=== PATIENT | female | born 1945 | race Caucasian/White ===

== ENCOUNTER → 2016-12-29 | Outpatient (CLI) | payer OTHER | LOC: FIMAGING 15:40 | DX: Z12.31 Encounter for screening mammogram for malignant neoplasm of breast (principal); Z80.3 Family history of malignant neoplasm of breast | CPT/HCPCS: G0202 ==

== ENCOUNTER → 2018-03-22 | Outpatient (CLI) | payer OTHER | LOC: FIMAGING 08:29 | PROVIDERS: ATTEND Nurse Practitioner Family | DX: Z12.31 Encounter for screening mammogram for malignant neoplasm of breast (principal); Z80.3 Family history of malignant neoplasm of breast ==

== ENCOUNTER 2018-08-25 11:37 | Inpatient (IN) | payer OTHER ==
--- NOTE | 2018-08-25 13:15 | EDPHY ---
H & P Time Seen by Provider: 08/25/18 12:52 HPI/ROS: HPI Shortness of breath and cough. 73-year-old female by private vehicle with her daughter. This patient reports that she has had worsening shortness of breath and cough since last Tuesday. She was diagnosed with pneumonia by her primary care physician Dr. Rose. She is seen her primary care physician twice over this time span. She states that her chest x-ray reportedly looked a little worse today but we do not have any access to this study. She is on day number four of azithromycin. She reports that she was feeling better yesterday but then started declining again today with worsening cough and shortness of breath. ROS: Constitutional: No fever, no chills. No weakness. Eyes: No discharge. No changes in vision. ENT: No sore throat. No nasal congestion or rhinorrhea. Respiratory: As above. Cardiac: No chest pain, no palpitations. Gastrointestinal: No abdominal pain, no vomiting, no diarrhea. Genitourinary: No hematuria. No dysuria or increased frequency with urination. Musculoskeletal: No back pain. No neck pain. No myalgias or arthralgias. Skin: No rashes. Neurological: No headache. No focal weakness or altered sensation. Past medical history: She does not have any significant past medical history other than noted. Social history: Nonsmoker. She is here with her daughter. No alcohol. Physical Exam: General Appearance: Alert, no distress. This patient is responding to questions appropriately and in full sentences. This patient appears well- hydrated and well-nourished. Intermittent dry cough. Eyes: Pupils equal and round no pallor or injection. No lid edema, erythema or injection. ENT, Mouth: Mucous membranes are moist. The pharyngeal tissues are unremarkable. No edema or swelling. No asymmetry suggestive of abscess. No erythema or exudates. No stridor on auscultation of her neck. No voice changes. No cervical, submandibular, submental lymphadenopathy. Respiratory: There are no retractions, lungs are clear to auscultation with good air movement bilaterally. Faint crackles noted at the bilateral bases, greater on the right side. No tachypnea. Cardiovascular: Regular rate and rhythm. No murmur. Gastrointestinal: Abdomen is soft and nontender, no masses, bowel sounds normal. No focal tenderness at McBurney's point. No Barth sign. Neurological: Motor sensory function is grossly intact. Cranial nerves are normal. Gait is normal. Skin: Warm and dry, no rashes. Musculoskeletal: Neck is supple and nontender. Extremities are symmetrical. No significant lower extremity edema. All joints range without pain or impingement. Psychiatric: No agitation. No depression. Database: EKG: EKG time is 1:31 p.m.; EKG shows a narrow complex normal sinus rhythm with a ventricular rate of 72. The MS, QRS, QT intervals are within normal limits. There are no ST-T wave changes indicative of ischemic or injury pattern. No evidence of right heart strain. Interpreted by me. Imaging: Chest x-ray PA and lateral: The cardiac mediastinal silhouette is unremarkable. No evidence of pneumothorax. Significant for patchy infiltrative process bilaterally involving the right lower lobe and middle lobe and left lower lobe and lingula. Interpreted by me. Procedures: Emergency department course: Triage vital signs reviewed. She is mildly hypertensive. Triage vital signs are otherwise normal. She is afebrile. Room air pulse oximetry is 90%. IV placed. A chest x-ray will be obtained. Cardiac workup to follow. 2:05 p.m., chest x-ray interpreted by myself. Significant for bilateral pneumonia. Blood cultures will be obtained. The patient will be started on IV Levaquin shortly. Plan for admission. She has been on azithromycin and getting worse. 2:50 p.m., patient re-evaluated, she is sitting upright on the gurney. Blood cultures have been taken. She will start her levofloxacin shortly. She remains afebrile. Results of chest x-ray, diagnosis of pneumonia discussed with her and her daughter. Need for admission discussed. All of their questions were answered. Patient endorses plan. 2:55 p.m., spoke with hospitalist. Case discussed in detail. Patient admitted to the hospitalist service in stable condition. Differential Diagnosis: The differential diagnosis on this patient includes but is not limited to pneumonia, bronchitis, congestive heart failure, pulmonary embolism, acute coronary syndrome. This represents a partial list of diagnoses considered. These considerations are based on history, physical exam, past history, reassessment and diagnostic testing. Smoking Status: Never smoked Constitutional: Initial Vital Signs Temperature (C) 36.4 C 08/25/18 11:39 Heart Rate 85 08/25/18 11:39 Respiratory Rate 08/25/18 11:39 Blood Pressure 140/75 H 08/25/18 11:39 O2 Sat (%) 98 08/25/18 11:39 O2 Delivery Mode Room Air O2 (L/minute) 2 Allergies/Adverse Reactions: No Known Allergies Allergy (Verified 08/25/18 14:20) Home Medications: Medication Instructions Recorded Azithromycin 250 mg PO DAILY 08/25/18 Losartan Potassium [Cozaar 50 mg 50 mg PO BID 08/25/18 (*)] Medical Decision Making - Data Points Laboratory Results: Laboratory Results 08/25/18 13:25 08/25/18 13:25 Medications Given: Enoxaparin Sodium (Lovenox) 40 mg SC DAILY [facility] Stop: 02/22/19 08:59 Last Admin: 08/26/18 08:23 Dose: 40 mg Levofloxacin/Dextrose (Levaquin 750 Mg (Premix)) 150 mls @ 100 mls/hr IV DAILY [facility] PRN Reason: Protocol Stop: 09/25/18 08:59 Last Admin: 08/26/18 08:23 Dose: 150 mls Discontinued Medications Albuterol/Ipratropium (Duoneb) 3 ml IH QID [facility] Stop: 02/21/19 15:59 Last Admin: 08/25/18 22:29 Dose: Not Given Levofloxacin/Dextrose (Levaquin 750 Mg (Premix)) 150 mls @ 100 mls/hr IV EDNOW ONE PRN Reason: Protocol Stop: 08/25/18 15:32 Last Admin: 08/25/18 15:18 Dose: 150 mls Point of Care Test Results: Chemistry 08/25/18 13:29 POC Troponin I 0.01 ng/mL ng/mL (0.00-0.08) Departure - Departure Disposition: [facility] Acute Clinical Impression: Cough, Dyspnea, Pneumonia Condition: Fair
[2018-08-25 13:42] LABS: PLATELET COUNT 552 10^3/uL (150-400)
[2018-08-25 13:47] LABS: INR 1.19 (0.83-1.16); PROTIME(PATIENT) 15.3 SEC (12.0-15.0)
[2018-08-25] MEDS ORDERED: PROMETHAZINE HCL 25 MG/ML INJ IVP PRN (15:38)
[2018-08-25] MEDS ORDERED: ACETAMINOPHEN 325 MG TAB PO PRN (15:38)
[2018-08-25] MEDS ORDERED: IPRATROPIUM/ALBUTEROL 3 ML DEYVIAL IH PRN (21:30)
[2018-08-25] MEDS: IPRATROPIUM/ALBUTEROL 3 ML DEYVIAL IH SCH ×2 (22:10→22:29)
--- NOTE | 2018-08-26 01:21 | GHP ---
DATE OF ADMISSION: 08/25/2018 CHIEF COMPLAINT: Cough and subjective shortness of breath. HISTORY OF PRESENT ILLNESS: The patient is a pleasant 73-year-old female with a past medical history of Mycobacterium avium intracellulare infection in approximately 2009 (followed at [facility]) who presented to [facility] with worsening cough and subjective shortness of breath. She had been seen in the outpatient setting and started on azithromycin, which she took for approximately 4 days. Despite this, however, her symptoms worsened and she came to the emergency ro om at [facility]. Initial chest x-ray showed bilateral infiltrates along with possib le bronchiectasis and reticular nodular infiltrates. This was felt to represent acute on top of ctc operator sabas interstitial lung disease. She was started on Levaquin. Surprisingly, she was not hypoxic, satt ing 97% on room air. A CT scan of the chest was ordered for further assessment and I talked with the radiologist on the reading. This showed worsening of lingular and right middle lobe tree and bud no dular opacities and bronchiectasis, compatible with MAC, and also showed development of diffuse predo minantly ground-glass opacities, compatible with MAC-related airspace disease or other concurrent aty pical infectious pneumonia. The patient states that she has only had worsening symptoms over the pas t 7 to 10 days. Prior to that, she had been without any upper respiratory symptoms. She states she was followed at [facility] around 2009 and 2010. She did bring a notebook with her that she kep t during this time and it does appear she was on triple antibiotic therapy for some time for Mycobact erium avium. She has not had any followup with Pulmonary Medicine since that time frame. I did revi ew the case with Dr. Ramirez with pulmonary and critical care medicine, who will provide formal consult ation. PAST MEDICAL HISTORY: Hypertension, history of ELIAZAR. PAST SURGICAL HISTORY: None. MEDICATIONS: Losartan. ALLERGIES: No known drug allergies. FAMILY HISTORY: Mother from complications from congestive heart failure, Dad from complications from a myocardial infarction. SOCIAL HISTORY: Patient is . She is a nonsmoker. She has 2 children. She is an active weav er and teaches locally. REVIEW OF SYSTEMS: CONSTITUTIONAL: No complaints of any subjective fevers or chills. ENT: No rece nt nasal congestion. CARDIOVASCULAR: No complaints of chest pains, palpitations, or syncopal events . RESPIRATORY: Positive for subjective shortness of breath and productive cough. No hemoptysis. G I: No nausea, vomiting, diarrhea, or constipation. : No reports of any difficulty with urination . NEUROLOGIC: No complaints of headaches or focal weakness. HEMATOLOGIC: No history of any deep v ein thrombosis or pulmonary embolism. PSYCHIATRIC: No history of anxiety or depression. ENDOCRINE: No polyuria or heat intolerance. SKIN: No new skin rashes. MUSCULOSKELETAL: No focal joint pain s. PHYSICAL EXAMINATION: VITAL SIGNS: Temperature 36.7, blood pressure 99/78, heart rate 98, respirati ons 24, satting 97% on room air. GENERAL: Patient appeared mildly distressed secondary to increased work of breathing, conversant but did get short of breath when talking. However, she remained above 90% during my conversation with her. Nontoxic appearing. HEENT: Extraocular movements intact. No scleral icterus. NECK: Supple. No adenopathy appreciated. CHEST: Clear on auscultation with nor mal respiratory effort. HEART: Regular rate and rhythm. No murmurs. ABDOMEN: Soft, nontender, no ndistended. : No Koo catheter in place. EXTREMITIES: No significant pitting edema. NEUROLOGI C: Cranial nerves 2-12 appeared intact with 5/5 strength in the extremities. LABORATORY DATA: White blood cell count 11 with 4% bandemia, hemoglobin 13, platelets 552. Sodium 1 38, potassium 4.2, chloride 103, bicarb 24, BUN 11, creatinine 0.6, glucose 107. Troponin 0.01. BNP 398. IMAGING: As detailed above. ASSESSMENT AND PLAN: Pneumonia, concerning for potential recurrence of Mycobacterium avium intracell ulare. This could also be community-acquired pneumonia on top of this history. I will continue with current Levaquin. Blood cultures have been taken. Urine legionella and pneumoniae antigens have be en ordered as well. Nebulizers as needed. There is no significant wheezing on exam. Leukocytosis. Trend with current antibiotic therapy. Sputum culture and AFB smears also ordered. Hypertension. I will hold her losartan overnight. Deep vein thrombosis prophylaxis. Lovenox. DISPOSITION: I will admit her under observation status overnight pending further recommendations. /[id number]/MODL
[2018-08-26 05:13] LABS: PLATELET COUNT 515 10^3/uL (150-400)
[2018-08-26] MEDS: ENOXAPARIN 40 MG/0.4 ML SYR SC SCH (08:23)
--- NOTE | 2018-08-26 09:23 | CPEKG ---
Test Reason : OPEN Blood Pressure : / mmHG Vent. Rate : 072 BPM Atrial Rate : 073 BPM P-R Int : 144 ms QRS Dur : 095 ms QT Int : 414 ms P-R-T Axes : 007 022 032 degrees QTc Int : 454 ms Sinus rhythm Borderline T abnormalities, anterior leads Confirmed by Kody Brownlee ([id number]) on 08/26/2018 9:23:20 AM Referred By: Confirmed By:Kody Brownlee
--- NOTE | 2018-08-26 11:09 | HOSPPROG ---
Hospitalist Progress Note Assessment/Plan: 73y female with c/o sob and cough. First encounter, chart reviewed. #PNA -on Levauin -cont supportive care -pulm consult today, D/W Pulm #Leukocytosis -mild, slight improvement #HTN -home meds -follow #Dispo -follow blood cultures -likely home in am if pulm agrees Subjective: Feeling much better today. Less coughing and SOB. Objective: Vital Signs Temp Pulse Resp BP Pulse Ox 36.5 C 88 16 129/89 H 96 08/26/18 08:00 08/26/18 08:00 08/26/18 08:00 08/26/18 08:00 08/26/18 08:00 Microbiology 08/25/18 17:37 - Final Sputum, Expectorated Laboratory Results 08/26/18 04:36 08/26/18 04:36 08/25/18 08/26/18 08/27/18 05:59 05:59 05:59 Intake Total 1030 Balance 1030 PT 15.3 SEC (12.0-15.0) H 08/25/18 13:25 INR 1.19 (0.83-1.16) H 08/25/18 13:25 - Physical Exam Constitutional: no apparent distress, appears nourished, not in pain Eyes: PERRL, anicteric sclera, EOMI Ears, Nose, Mouth, Throat: moist mucous membranes, hearing normal, ears appear normal Cardiovascular: No JVD, No tachycardia, No edema Respiratory: no respiratory distress, no rales or rhonchi, reduced air movement Gastrointestinal: normoactive bowel sounds, No tenderness, No ascites Skin: warm, normal color, No mottled Musculoskeletal: normal joint ROM, no joint effusions, generalized weakness Neurologic: AAOx3 Psychiatric: interacting appropriately, not anxious, not encephalopathic, thought process linear ICD10 Worksheet Patient Problems: Problems Problem Status Onset Cough Acute Dyspnea Acute Pneumonia Acute
--- NOTE | 2018-08-26 13:11 | ASMTCMCOM ---
CM Note CM Note Notes: Pt has been admitted with possible PNA. Cultures are pending due to her hx of ELIAZAR. She has a hx of chronic interstitial lung disease and HTN. She is currently on IV ABX and nebulizer treatments. She lives alone in [place] and has a son and daughter nearby. A pulmonary consult has been requested. CM will follow for any d/c needs. Date Signed: 08/26/2018 01:10 PM Electronically Signed By:CORI Sultana
--- NOTE | 2018-08-26 19:07 | PDMN ---
Medical Necessity Medical necessity: [facility] M[address] [place], [place], A-2 days: 73 yo presents w/ cough and sob, dx w/ pneumonia, concerning for potential recurrence of mycobacterium avium intracellulare. Initially OBS but pt changed to IP status requiring further supportive care and pulm consult, cont on IV antibx, BC pending. Important to note pt was seen in the outpt setting for these s/sx and started on azithromycin x4 days but s/sx worsened. Hx HTN, ELIAZAR as above. Change to IP status 08/26/18 @1110
--- NOTE | 2018-08-26 20:46 | GCON ---
PULMONARY/CRITICAL CARE CONSULTATION DATE OF CONSULTATION: 08/26/2018 REFERRING PHYSICIAN: Bethel Barr MD REASON FOR REFERRAL: Evaluation and management of pneumonia. HISTORY: The patient is a 73-year-old woman, who was admitted to the hospital with cough and dyspnea . She has a history of Mycobacterium avium complex infection in approximately 2009, for which she wa s treated with 3 drugs for about a year. She reports that she has essentially had no pulmonary sympt oms since her treatment 8 years ago. She was in this usual state of good health until about 10 days ago, when she returned from a trip from [place], and shortly thereafter developed symptoms of a head cold with nasal congestion and coryza. This progressed over the next few days, to the point that she felt quite ill, with fatigue and poor appetite, as well as shortness of breath. She was seen by Dr. Alves, her PCP, who prescribed azithromycin about 5 days ago. She completed the course and did n ot feel well, so yesterday she saw him again, and because she was feeling so shortness of breath, fat igued, unable to work, he referred her for hospitalization. She was seen and started on Levaquin las t night. She feels quite a bit better today. Her appetite has improved and she has less shortness o f breath and her energy has improved. PAST MEDICAL HISTORY: 1. Hypertension. 2. History of Mycobacterium avium complex. MEDICATIONS: Losartan. ALLERGIES: None. SOCIAL HISTORY: The patient is . She does not smoke. FAMILY HISTORY: Unremarkable. REVIEW OF SYSTEMS: A 10-point review of systems adds nothing to the history of present illness. PHYSICAL EXAMINATION: GENERAL: The patient is awake and alert. She is in no acute distress. VITAL SIGNS: Blood pressure is 123/64 with a heart rate of 84, down from as high as 106 last night. She has been afebrile throughout hospitalization. HEENT: Normocephalic and atraumatic. No icterus. NE CK: No adenopathy. Trachea is midline. CHEST: Clear to auscultation. CARDIAC: Regular rate and rhythm without murmur. ABDOMEN: Soft and nontender. Bowel sounds are present. EXTREMITIES: No cl ubbing, cyanosis, or edema. NEURO: The patient is awake and alert. She has no focal motor deficits . LABORATORY: White blood count is 10.5, down from 11.7. She has 2% bands. Chemistry group is unrema rkable. Her BNP is 398. INR is 1.2. Sputum Gram stain shows several organisms, and a preliminary c ulture shows mixed paul. AFB smear is negative. Respiratory PCR is pending. Legionella and Strep pneumoniae antigens have been ordered, but not yet collected. DIAGNOSTIC DATA: A CT scan of the chest shows multiple patchy areas of bilateral ground-glass/inters titial infiltrates. These are new compared to 2012. In addition, there is some bronchiectasis that was present in 2012 in the right middle lobe and lingula, as well as some tree in bud changes, also p reviously present. Images reviewed by me. ASSESSMENT: 1. Bilateral pneumonia. The patient has patchy airspace disease, and I believe that is most consist ent with an acute infectious process, such as a viral or bacterial pneumonia. She has clinically res ponded quite quickly to Levaquin. I doubt that this represents active Mycobacterium avium complex gi asim the acute nature of the symptoms. It is hard to say how much of the CT findings are old versus n ew. 2. History of Mycobacterium avium complex. The patient has a history of this, but has been asymptom atic for the last 7 years. RECOMMENDATIONS: 1. Await results of respiratory panel and legionella/pneumonia antigens as previously ordered. 2. Continue Levaquin. 3. The patient could probably be discharged home tomorrow if she continues to do well. /[id number]/MODL
[2018-08-26] MEDS ORDERED: BENZONATATE 100 MG CAP PO PRN (21:18)
[2018-08-27 05:22] LABS: PLATELET COUNT 522 10^3/uL (150-400)
[2018-08-27 08:12] VITALS: BP 138/73
[2018-08-27] MEDS: ENOXAPARIN 40 MG/0.4 ML SYR SC SCH (08:33)
--- NOTE | 2018-08-27 14:16 | GDS ---
DISCHARGE DIAGNOSES: 1. Bilateral pneumonia. 2. History of Mycobacterium avium complex. CONSULTATIONS: Dr. Ramirez of pulmonology. STUDIES AND PROCEDURES DONE: CT of the chest. PHYSICAL EXAM: GENERAL: The patient is alert. VITAL SIGNS: Are afebrile at 36.8, pulse is a 90, re spiratory rate 16, blood pressure is 138/73. She is saturating 98% on room air. I have seen and radha luated the patient on the day of discharge. HOSPITAL COURSE: The patient is a 73-year-old female who presented to the emergency room with compla ints of shortness of breath. She was evaluated and diagnosed with: 1. Bilateral pneumonia. During this hospitalization, a CT of her chest was performed. She also rec eived a consultation from Dr. Ramirez of Pulmonology. She has been initiated on Levaquin and has respo nded very rapidly to this treatment. She will continue on Levaquin in the outpatient setting and fol low up with Dr. Ramirez to assure resolution of her pneumonia. 2. Leukocytosis. This is in the setting of acute infectious process and is stable. 3. Hypertension. Her home medications have been continued and the patient is tolerating this well. DISPOSITION: The patient will be discharged home independently. FOLLOWUP: Followup will be with her primary care physician, AUNDREA Cancino as well as Dr. Catracho Ramirez of Pulmonology. I have instructed the patient to follow up with her primary care office for the res ults of her urine Legionella and strep pneumoniae results. She is in agreement with this plan. DISCHARGE MEDICATIONS: Please refer to EMR form. I have provided the patient a prescription for Lev aquin 750 mg daily. PENDING STUDIES: Include urine Legionella as well as strep pneumoniae. I spent greater than 35 jhoan chelsea in the care, coordination, and management of the patient's disposition including followup instruc tions. /[id number]/MODL
--- NOTE | 2018-08-27 16:23 | ASMTLACE ---
LACE Length of stay for Answers: 1 day current admission Acuity / Level of Answers: Yes Care: Did the patient have an inpatient admission? Comorbidities - select Answers: Chronic pulmonary disease all that apply Other Notes: HTN # of Emergency department Answers: 1-2 visits in the last 6 months Score: 8 Date Signed: 08/27/2018 04:22 PM Electronically Signed By:Laure Smith RN
--- NOTE | 2018-08-27 16:35 | ASDISCHSUM ---
Discharge Information Plan Status:Home with No Needs Medically Cleared to Leave:08/26/2018 Discharge Date:08/27/2018 01:04 PM CM D/C Disposition:Home, Routine, Self-Care ADT D/C Disposition:Home, Routine, Self-Care Projected Discharge Date:08/27/2018 01:04 PM Transportation at D/C:Family Discharge Delay Reason: Follow-Up Date:08/27/2018 01:04 PM Discharge Slot:2 - 12:01 pm - 18:00 pm Final Diagnosis:Bilateral pneumonia, leukocytosis, HTN Placement Information Patient Contact Information Contact Name:KELVIN Relationship:Friend Address: City:[place] Alternate Phone: [facility] Code:[place] Email: Financial Information Financial Class:Medicare Primary Plan Desc:MEDICARE INPATIENT Primary Plan Number:[id number] Secondary Plan Desc:MEDICO Secondary Plan Number:[id number] Assessment Information LACE LACE Length of stay for Answers: 1 day current admission Acuity / Level of Answers: Yes Care: Did the patient have an inpatient admission? Comorbidities - select Answers: Chronic pulmonary disease all that apply Other Notes: HTN # of Emergency department Answers: 1-2 visits in the last 6 months Score: 8 Date Signed: 08/27/2018 04:22 PM Electronically Signed By:Laure Smith RN [facility] Progress Note CM Note CM Note Notes: Pt has been admitted with possible PNA. Cultures are pending due to her hx of ELIAZAR. She has a hx of chronic interstitial lung disease and HTN. She is currently on IV ABX and nebulizer treatments. She lives alone in [place] and has a son and daughter nearby. A pulmonary consult has been requested. CM will follow for any d/c needs. Date Signed: 08/26/2018 01:10 PM Electronically Signed By:CORI Sultana Case Management Discharge Plan Note Case Management Discharge Discharge Order Complete? Answers: Yes Patient to Obtain Answers: Independently Medications Transportation Arranged Answers: Family/Friends Transport will Pick (Date 08/27/2018 12:00 AM & Time) EMTALA Complete Answers: No Notes: N/A Case Management Transport Answers: No Notes: N/A Form Complete Faxed Final Orders Answers: No Notes: N/A Agency/Facility Transfer Answers: No Notes: N/A Report Printed & Faxed to Receiving Agency Family Notified Answers: Yes Notes: Pt notified Discharge Comments Notes: Reviewed chart regarding discharge plan of care, pt's progress. Per MD notes, pt to discharge home independently today with no identified needs. No IM/ONTIVEROS form signed, pt left prior to signing. Pt to follow up as directed. CM available for any further issues or concerns. Discharge Plan: Home independently Date Signed: 08/27/2018 04:33 PM Electronically Signed By:Laure Smith RN Intervention Information Intervention Type:*Incorrect Registration Date of Service:08/26/2018 11:06 AM Patient Type:Inpatient Staff Member:Sherley Mistry Hours: Discipline: Severity: Comment: Intervention Type:IM-Pt. Not Available Date of Service:08/27/2018 04:24 PM Patient Type:Inpatient Staff Member:SHARONA Smith Taylor Hours: Discipline: Severity: Comment:Pt left prior to signing IM form.
== END 2018-08-27 13:04 | disposition home or self-care (01) | DRG 195 ==
LOC: INTOOBSV 15:07 → F3E 16:08 → OBSVTOIN 08-26 11:15
PROVIDERS: ADMIT Emergency Medicine; ATTEND Emergency Medicine
DX: J18.9 Pneumonia, unspecified organism (principal); I10 Essential (primary) hypertension; Z23 Encounter for immunization
CPT/HCPCS: 84484-PO; 87449-90; 96365; G0008; G0378; J1650; J1956

== ENCOUNTER → 2018-10-12 | Outpatient (CLI) | payer OTHER | LOC: FIMAGING 12:11 | PROVIDERS: ATTEND Internal Medicine Critical Care Medicine | DX: J18.9 Pneumonia, unspecified organism (principal) ==